=== PATIENT | female | born 1980 | race Caucasian/White ===

== ENCOUNTER → 2024-02-04 06:37 | Outpatient (REF) | payer OTHER, BC, SELFPAY | LOC: MRI 3T 06:37 | PROVIDERS: ATTENDING PHYSICIAN Orthopaedic Surgery Hand Surgery | DX: G56.30 Lesion of radial nerve, unspecified upper limb (principal) | CPT/HCPCS: 73221 ==

== ENCOUNTER → 2024-02-27 07:57 | Outpatient (REF) | payer BC, SELFPAY | LOC: MRI 3T 07:57 | PROVIDERS: ATTENDING PHYSICIAN Obstetrics & Gynecology; FAMILY PHYSICIAN Family Medicine | DX: R92.343 Mammographic extreme density, bilateral breasts (principal); R92.2 Inconclusive mammogram; R92.30 Dense breasts, unspecified; Z13.79 Encounter for other screening for genetic and chromosomal anomalies; Z15.01 Genetic susceptibility to malignant neoplasm of breast | CPT/HCPCS: 77049; A9585 ==

== ENCOUNTER → 2025-09-02 08:57 | Outpatient (REF) | payer MEDICARE, BC, SELFPAY | LOC: RAD 08:57 | PROVIDERS: ATTENDING PHYSICIAN Physician Assistant Medical | DX: M54.50 Low back pain, unspecified (principal); G89.29 Other chronic pain | CPT/HCPCS: 72072; 72110 ==

== ENCOUNTER → 2025-10-12 08:13 | Outpatient (REF) | payer BC, MEDICARE, SELFPAY | LOC: MRI 08:13 | PROVIDERS: ATTENDING PHYSICIAN Physician Assistant Medical | DX: M54.2 Cervicalgia (principal); M54.6 Pain in thoracic spine; G89.29 Other chronic pain; M54.41 Lumbago with sciatica, right side; M54.42 Lumbago with sciatica, left side; Z23 Encounter for immunization; M25.661 Stiffness of right knee, not elsewhere classified; M25.662 Stiffness of left knee, not elsewhere classified; R26.2 Difficulty in walking, not elsewhere classified; Z96.89 Presence of other specified functional implants | CPT/HCPCS: 72141; 72146; 72148; 76014; 76015 ==